=== PATIENT | female | born 1965 | race Two or more races ===

== ENCOUNTER 2020-09-14 05:51 | Inpatient (IN) | payer BC ==
[2020-09-14] VITALS (15 sets, daily range): BP systolic 101–127; BP diastolic 60–88
[~2020-09-14] VITALS: Ht 152.4 cm; Wt 52.6 kg
[2020-09-14] MEDS ORDERED: ATORVASTATIN CA10 MG ORAL (06:39)
[2020-09-14] MEDS ORDERED: PANTOPRAZOLE SO40 MG ORAL (06:40)
--- NOTE | 2020-09-14 06:59 | Anethesia Preoperative Eval ---
Anesthesia Pre-op PMH/ROS General Date of Evaluation: Sep 14, 2020 Time of Evaluation: 07:19 Anesthesiologist: Alexander ASA Score: ASA 3 Mallampati Score Class I : Soft palate, uvula, fauces, pillars visible Class II: Soft palate, uvula, fauces visible Class III: Soft palate, base of uvula visible Class IV: Only hard plate visible Mallampati Classification: Class I Surgeon: Franck Diagnosis: Vaginal Bleeding Surgical Procedure: Supracervical Hysterectomy Anesthesia History: none Family History: no anesthesia problems Allergies: Coded Allergies: No Known Allergies (Unverified , 09/14/20) Medications: see eMAR Patient NPO?: Yes Past Medical History Cardiovascular: Reports: HTN, other - HL Gastrointestinal/Genitourinary: Reports: GERD, other - Vag Bleeding Anesthesia Pre-op Phys. Exam Physician Exam Last Vital Signs Date Time Temp Pulse Resp B/P (MAP) Pulse Ox O2 Delivery O2 Flow Rate FiO2 09/14/20 06:34 Room Air 09/14/20 06:27 97.2 72 18 126/88 (101) 100 Constitutional: NAD Neurologic: CN 2-12 intact Cardiovascular: RRR Respiratory: CTA Airway Exam Mallampati Score: Class I MO: full ROM: full Teeth: missing Dentures: upper Anesthesia Pre-op A/P Labs Urine Test Test 09/14/20 06:10 Urine HCG, Qualitative Negative (NEGATIVE) Risk Assessment & Plan Assessment: ASA 3 Pre-Antibiotics Dru gram Ancef IV Given Within 1 Hr of Incision: Yes Time Given: 07:51 Jv Munoz MD Sep 14, 2020 06:59
[2020-09-14] MEDS ORDERED: Hydromorphone 0.5mg/0.5ml inj IVP PRN ×2 (07:00→07:30)
[2020-09-14] MEDS ORDERED: Meperidine 25mg/1ml Inj (FOR RIGORS ONLY) IV PRN (07:00)
[2020-09-14] MEDS ORDERED: HYDROcodone/Acetamin 7.5/325 tab ORAL PRN (07:00)
[2020-09-14] MEDS ORDERED: Atropine Sulfate 0.4mg/ml inj IVP PRN (07:00)
[2020-09-14] MEDS ORDERED: Labetalol 5mg/ml 20ml vial IV PRN (07:00)
[2020-09-14] MEDS ORDERED: oxyCODONE HCL/Acetaminophen 5/325mg ORAL PRN (07:00)
[2020-09-14] MEDS ORDERED: Metoclopramide 10mg/2ml Inj IVP PRN ×2 (07:00→07:30)
[2020-09-14] MEDS ORDERED: DiphenhydrAMINE 50mg/ml Inj IVP PRN ×2 (07:00→07:30)
[2020-09-14] MEDS ORDERED: Acetaminophen (Non formulary) 100 ML IV ONE (07:00)
[2020-09-14] MEDS ORDERED: ceFAZolin sod 2 GM in NS 55 ML IVPB ONE (07:00)
[2020-09-14] MEDS ORDERED: LR 1000ml 1,000 ML IVLG SCH (07:00)
[2020-09-14] MEDS ORDERED: LORazepam Inj 2mg/ml 1ml IV PRN (07:00)
[2020-09-14] MEDS ORDERED: Ketorolac 30mg Inj IV PRN ×2 (07:00)
[2020-09-14] MEDS ORDERED: Midazolam 2mg/2ml Inj IVP PRN (07:00)
[2020-09-14] MEDS ORDERED: fentaNYL 100 mcg/2 mL IV PRN (07:00)
[2020-09-14] MEDS ORDERED: HYDROcodone/Acetamin 5/325 tab ORAL PRN (07:00)
[2020-09-14] MEDS ORDERED: Duramorph PF 5mg/10ml amp ONE (07:02)
[2020-09-14] MEDS ORDERED: Rocuronium Bromide 50mg/5ml Inj IV ONE (07:03)
[2020-09-14] MEDS ORDERED: Lidocaine 1% Plain 30 ml INJ ONE (07:11)
[2020-09-14] MEDS ORDERED: Sodium Chloride 10ml vial INJ ONE ×2 (07:16→07:25)
[2020-09-14] MEDS ORDERED: Lidocaine 1% MPF 10mg/ml 5ml ONE ×2 (07:16→09:25)
[2020-09-14] MEDS ORDERED: Glycopyrrolate 0.2mg/ml 1ml Vial ONE ×2 (07:21→09:57)
[2020-09-14] MEDS ORDERED: Neostigmine 1mg/ml 10ml Inj ONE ×2 (07:21→12:00)
[2020-09-14] MEDS ORDERED: fentaNYL 100 mcg/2 mL IV ONE (07:23)
[2020-09-14] MEDS ORDERED: Ropivacaine 5mg/ml Vial 30ml INJ ONE (07:27)
--- NOTE | 2020-09-14 07:28 | Pre-Procedure Note/Attestation ---
Pre-Procedure Note/Attestation Complete Prior to Procedure Planned Procedure: not applicable Procedure Narrative: supracervical hysterectomy, bilateral salpingectomies possible oophorectomies Indications for Procedure Pre-Operative Diagnosis: intramural leiomyoma and pelvic/abdominal pain and pressure Attestation I attest that I discussed the nature of the procedure; its benefits; risks and complications; and alternatives (and the risks and benefits of such alternatives), prior to the procedure, with the patient (or the patient's legal sales utility representative). I attest that, if there was a reasonable possibility of needing a blood transfusion, the patient (or the patient's legal sales utility representative) was given the [place] Department [employer] standardized written summary, pursuant to the Joselo [place] Blood Safety Act ([place] Health and Safety Code # 1645, as amended). I attest that I re-evaluated the patient just prior to the surgery and that there has been no change in the patient's H&P, except as documented below: Roxi Juárez MD Sep 14, 2020 07:28
[2020-09-14] MEDS ORDERED: Acetaminophen 650 MG SUPP RECTAL PRN (07:30)
[2020-09-14] MEDS ORDERED: HYDROcodone/Acetamin 10/325 tab ORAL PRN (07:30)
[2020-09-14] MEDS ORDERED: ProvayBlue 5mg/ml 10ml amp INJ ONE (07:30)
[2020-09-14] MEDS ORDERED: Sennosides 8.6mg tab ORAL PRN (07:30)
[2020-09-14] MEDS ORDERED: HYDROmorphone 1mg/ml Carpuject IVP PRN (07:30)
[2020-09-14] MEDS ORDERED: Milk of Magnesia 30ml Ud ORAL PRN (07:30)
[2020-09-14] MEDS ORDERED: NS 55ml IV ONE (08:49)
--- NOTE | 2020-09-14 10:40 | Immediate Post-Op Evaluation ---
Immediate Post-Op Evalulation Immediate Post-Op Evalulation Procedure: Supracervical Hysterectomy Date of Evaluation: Sep 14, 2020 Time of Evaluation: 10:52 IV Fluids: 1200 LR Blood Products: 0 Estimated Blood Loss: 150 Urinary Output: 200 Blood Pressure Systolic: 122 Blood Pressure Diastolic: 76 Pulse Rate: 76 Respiratory Rate: 16 O2 Sat by Pulse Oximetry: 100 Temperature (Fahrenheit): 99.7 Pain Score (1-10): 2 Nausea: No Vomiting: No Complications 0 Patient Status: awake, reacts, patent, extubated, none Hydration Status: adequate Dru Gram Ancef IV Given Within 1 Hr of Incision: Yes Time Given: 07:51 Jv Munoz MD Sep 14, 2020 10:40
--- NOTE | 2020-09-14 10:53 | Brief Operative Note ---
Immediate Post Operative Note Operative Note Pre-op Diagnosis: intramural leiomyoma and pelvic/abdominal pain and pressure Post-op Diagnosis: same as pre-op Surgeon: yakelin Line Inspector: renuka Anesthesiologist: Perry Anesthesia: general Specimen: yes Complications: none Condition: stable Fluids: crystalloid Estimated Blood Loss: volume - 150cc Drains: none Implant(s) used?: No Roxi Juárez MD Sep 14, 2020 10:53
[2020-09-14] MEDS ORDERED: Sterile Water Irrig 1000ml IRRIG ONE (12:00)
[2020-09-14] MEDS ORDERED: NS Irrig 1000ml ONE (12:00)
[2020-09-14] MEDS ORDERED: LR 1000ml ONE (12:00)
[2020-09-14] MEDS: Ketorolac 30mg Inj IV SCH ×2 (13:13→19:36)
[2020-09-14] MEDS: D5 1/2NS w/KCl 20mEq 1,000 ML IV SCH ×2 (14:15→22:02)
[2020-09-14] MEDS ORDERED: ceFAZolin sod 1 GM in D5W 55 ML IV ONE (16:00)
--- NOTE | 2020-09-14 18:45 | Operative Note - Dictated ---
DATE OF OPERATION: 09/14/2020 PREOPERATIVE DIAGNOSES: Lower abdominal pain and leiomyoma. POSTOPERATIVE DIAGNOSES: Lower abdominal pain, leiomyoma, and endometriosis. PROCEDURE: Exploratory laparotomy, total abdominal hysterectomy, bilateral salpingectomy, and extensive lysis of adhesions between the bowel and uterus. Surgeon: Roxi Juárez M.D. Export Clerk: Natalia Castle M.D. EBL: 150cc Anesthesia: General/ endotracheal Anesthesiologist: Jayashree Amador PROCEDURE IN DETAIL: After ensuring informed consent, the patient was taken to the operating room where general anesthesia was induced. The patient was placed in dorsal lithotomy position. A low-transverse incision was made in the skin and carried down to the level of the fascia with the Bovie. The fascia was tented up and both bluntly and sharply dissected off of the underlying rectus muscles. Next, peritoneum was identified and entered bluntly. Peritoneal incision was extended superiorly and posteriorly. A medium Pravin retractor was placed and bowel was packed away with 3 laps. Pelvis was explored. There were extensive adhesions between uterus and the rectosigmoid as well as between ovaries, bowel, and lateral sidewalls. There were multiple fibroids in the uterus. Left tube and ovary appeared normal, although adherent, however right ovary contained an endometrioma and tube appeared edematous and adherent to rectosigmoid and back of the uterus Using both sharp and blunt dissection, sharp with Metzenbaums and blunt with a sponge stick and fingers, the rectosigmoid was resected from the posterior uterus and cervix. During the resection, a large endometrioma was encountered on the right side that was entered during disection of adhesions. First right round ligament was grasped, cut, and suture ligated and vesicouterine peritoneum was entered and dissected off of the underlying lower uterine segment. The left round ligament was grasped, transected, suture ligated, and bladder reflection was created from the left side. On the left side, a window was made in the broad ligament and using Mitch clamps, utero-ovarian was grasped, cut, and suture ligated x2. Attention was turned to the right side where adhesions were taken off between the right ovary and tube, posterior uterus, and the bowel until the ovaries and tubes were completely free on the right side. Window was created in the broad ligament. Mitch clamp was passed through the window and the utero-ovarian was transected and suture ligated x2. The left uterine was grasped with slightly curved Zeppelins, cut, and suture ligated. Unfortunately on the right side, the uterine was not visible, so myomectomy was performed on the right side, namely Pitressin was injected 20 units in 50 mL, 10 mL of that was used, and the fibroid was resected which afforded excellent visualization of the right uterine artery, which was grasped with curved Zeppelin, cut, and suture ligated. The uterus was amputated. Again, because of the extensive cul-de-sac adhesions and the short cervix, cervix was amputated as well for fear that the adhesions will reform and it will be impossible to resect. The cuff was closed with 0 Vicryl. Excellent hemostasis was assured. Bilateral tubes were amputated, namely they were grasped with Mitch clamps, amputated, and the pedicle was suture ligated x2 on both sides. Excellent hemostasis was assured. The pelvis was copiously irrigated with 2 L of normal saline. Laps were removed. Pravin was removed. Peritoneum was closed with 2-0 Vicryl. Muscle was closed with 2-0 Vicryl. Fascia was closed with 0 Vicryl. Subcutaneous was closed with 3-0 plain and subcuticular suture was used to close the skin with 3-0 Monocryl. Steri-Strips were placed. At the end of the procedure, all instrument and lap counts were correct x3. The patient was taken to the recovery area extubated and in stable condition. Roxi Juárez M.D. DR: Sabrina JOB#: [id number] CC: RICHARD
[2020-09-14] MEDS ORDERED: Tubing IV Secondary IV ONE (21:03)
[2020-09-15] VITALS: BP 107/65
[2020-09-15] MEDS: Ketorolac 30mg Inj IV SCH ×4 (01:19→19:51)
[2020-09-15 04:00] VITALS: BP 94/57
[2020-09-15 06:02] LABS: ANION GAP 5 mmol/L (5-15); BLOOD UREA NITROGEN 8 mg/dL (7-18); CALCIUM 7.7 MG/DL (8.5-10.1); CARBON DIOXIDE 28 MMOL/L (21-32); CHLORIDE 107 MMOL/L (98-107); CREATININE 0.8 MG/DL (0.55-1.30); POTASSIUM 3.9 MMOL/L (3.5-5.1); SODIUM 140 MMOL/L (136-145)
[2020-09-15] MEDS: D5 1/2NS w/KCl 20mEq 1,000 ML IV SCH (06:03)
[2020-09-15 06:08] LABS: BASOPHILS % (AUTO) 0.3 % (0.0-2.0); HEMATOCRIT 34.5 % (37.0-47.0); HEMOGLOBIN 11.3 G/DL (12.0-16.0); LYMPHOCYTES % (AUTO) 15.8 % (20.0-45.0); MEAN CORPUSCULAR VOLUME 101 FL (80-99); MONOCYTES % (AUTO) 8.3 % (1.0-10.0); NEUTROPHILS % (AUTO) 75.5 % (45.0-75.0); PLATELET COUNT 217 K/UL (150-450); RED BLOOD COUNT 3.42 M/UL (4.20-5.40); RED CELL DISTRIBUTION WIDTH 11.5 % (11.6-14.8); WHITE BLOOD COUNT 8.8 K/UL (4.8-10.8)
[2020-09-15 07:55] VITALS: BP 116/68
--- NOTE | 2020-09-15 08:38 | 48 Hour Post Anesthesia Eval ---
Post Anesthesia Evaluation Procedure: Supracervical Hysterectomy Date of Evaluation: Sep 15, 2020 Time of Evaluation: 08:37 Blood Pressure Systolic: 116 0: 68 Pulse Rate: 77 Respiratory Rate: 16 Temperature (Fahrenheit): 98.2 O2 Sat by Pulse Oximetry: 99 Airway: patent Nausea: No Vomiting: No Pain Intensity: 1 - Pt comfortable over night. Hydration Status: adequate Cardiopulmonary Status: Stable Mental Status/LOC: patient returned to baseline Follow-up Care/Observations: 0 Post-Anesthesia Complications: 0 Follow-up care needed: N/A Jv Munoz MD Sep 15, 2020 08:38
--- NOTE | 2020-09-15 09:37 | General Surgery Progress Note ---
General Surgery-Progress Note Subjective Symptoms: pain same, tolerating diet, voiding well, passing flatus Objective Last 24 Hour Vital Signs Date Time Temp Pulse Resp B/P (MAP) Pulse Ox O2 Delivery O2 Flow Rate FiO2 09/15/20 08:38 77 16 99 09/15/20 07:55 98.2 77 16 116/68 (84) 99 09/15/20 04:00 98.1 70 18 94/57 (69) 97 09/15/20 01:49 98.5 09/15/20 00:00 98.5 68 18 107/65 (79) 99 09/14/20 20:55 Room Air 09/14/20 20:00 66 18 104/60 (75) 99 09/14/20 16:00 67 16 104/60 (75) 97 09/14/20 14:55 70 16 105/62 (76) 97 09/14/20 13:55 71 16 104/62 (76) 96 09/14/20 12:55 70 16 101/62 (75) 100 09/14/20 12:25 70 16 114/72 (86) 100 09/14/20 11:55 98.5 69 14 106/66 (79) 100 09/14/20 11:45 97.5 65 18 125/73 100 Nasal Cannula 3 09/14/20 11:30 67 17 127/70 100 Nasal Cannula 3 09/14/20 11:15 62 15 120/72 100 Nasal Cannula 3 09/14/20 11:00 67 17 124/71 100 Nasal Cannula 3 09/14/20 10:50 63 16 126/66 100 Nasal Cannula 3 09/14/20 10:40 71 18 124/73 100 Nasal Cannula 3 09/14/20 10:40 76 16 100 09/14/20 10:35 99.7 77 16 122/76 100 Nasal Cannula 3 I&O Intake and Output 09/14/20 09/15/20 19:00 07:00 Intake Total 1280 ml 1365 ml Output Total 575 ml 1100 ml Balance 705 ml 265 ml Intake Oral 400 ml 240 ml IV Total 880 ml 1125 ml Output Urine Total 575 ml 1100 ml Dressing: dry Drains: none Cardiovascular: RSR Respiratory: clear Abdomen: soft, present bowel sounds, non-distended Extremities: no edema Laboratory Tests Test 09/15/20 04:50 White Blood Count 8.8 K/UL (4.8-10.8) Red Blood Count 3.42 M/UL (4.20-5.40) L Hemoglobin 11.3 G/DL (12.0-16.0) L Hematocrit 34.5 % (37.0-47.0) L Mean Corpuscular Volume 101 FL (80-99) H Mean Corpuscular Hemoglobin 33.0 PG (27.0-31.0) H Mean Corpuscular Hemoglobin Concent 32.7 G/DL (32.0-36.0) Red Cell Distribution Width 11.5 % (11.6-14.8) L Platelet Count 217 K/UL (150-450) Mean Platelet Volume 6.7 FL (6.5-10.1) Neutrophils (%) (Auto) 75.5 % (45.0-75.0) H Lymphocytes (%) (Auto) 15.8 % (20.0-45.0) L Monocytes (%) (Auto) 8.3 % (1.0-10.0) Eosinophils (%) (Auto) 0.0 % (0.0-3.0) Basophils (%) (Auto) 0.3 % (0.0-2.0) Sodium Level 140 MMOL/L (136-145) Potassium Level 3.9 MMOL/L (3.5-5.1) Chloride Level 107 MMOL/L (98-107) Carbon Dioxide Level 28 MMOL/L (21-32) Anion Gap 5 mmol/L (5-15) Blood Urea Nitrogen 8 mg/dL (7-18) Creatinine 0.8 MG/DL (0.55-1.30) Estimat Glomerular Filtration Rate > 60 mL/min (>60) Glucose Level 150 MG/DL (74-106) H Calcium Level 7.7 MG/DL (8.5-10.1) L Assessment Post-op Diagnosis s/p DESTINY- stable Plan Additional Comments ambulate/ regular diet plan to d/c in am Roxi Juárez MD Sep 15, 2020 09:37
[2020-09-15] MEDS: HYDROcodone/Acetamin 5/325 tab ORAL PRN (10:00)
[2020-09-15 11:54] VITALS: BP 109/64
[2020-09-15 16:00] VITALS: BP 102/61
[2020-09-15 19:54] VITALS: BP 119/71
[2020-09-16] VITALS: BP 122/70
[2020-09-16] MEDS: Ketorolac 30mg Inj IV SCH ×3 (01:25→13:42)
[2020-09-16 04:00] VITALS: BP 121/70
[2020-09-16 07:34] VITALS: BP 136/72
[2020-09-16] MEDS: HYDROcodone/Acetamin 5/325 tab ORAL PRN (08:54)
[2020-09-16 12:00] VITALS: BP 143/80
--- NOTE | 2020-09-16 12:03 | General Surgery Progress Note ---
General Surgery-Progress Note Subjective Symptoms: improved, tolerating diet, voiding well, passing flatus Objective Last 24 Hour Vital Signs Date Time Temp Pulse Resp B/P (MAP) Pulse Ox O2 Delivery O2 Flow Rate FiO2 09/16/20 08:58 Room Air 09/16/20 07:34 98.7 61 16 136/72 (93) 98 09/16/20 04:00 98.1 72 16 121/70 (87) 95 09/16/20 01:55 98.5 09/16/20 00:00 98.4 72 16 122/70 (87) 94 09/15/20 21:00 Room Air 09/15/20 20:21 98.5 09/15/20 19:54 98.5 69 16 119/71 (87) 95 09/15/20 16:00 98.3 72 16 102/61 (75) 95 I&O Intake and Output 09/15/20 09/16/20 19:00 07:00 Intake Total 750 ml 480 ml Balance 750 ml 480 ml Intake Oral 500 ml 480 ml IV Total 250 ml # Voids 3 4 Dressing: dry Wound: clean, dry, intact Drains: none Cardiovascular: RSR Respiratory: clear Abdomen: soft, present bowel sounds, non-distended Extremities: no edema, no tenderness, no cyanosis Assessment Post-op Diagnosis s/p DESTINY- stable Plan Additional Comments d/c home on tramadol 50 JoosRoxi MD Sep 16, 2020 12:02
--- NOTE | 2020-09-16 12:04 | Discharge Instructions ---
Discharge Instructions Discharge Instructions Diet: regular Resume Normal Activity?: No Activity: up ad radha, light activity, okay to shower For Surgical Patients Dressing Care: keep dry and clean May shower: Yes Contact your physician for: bleeding, pain, tenderness, redness, swelling For Congestive Heart Failure Reminder Report to your physician any weight gain of 5 pounds or more in one week. Roxi Juárez MD Sep 16, 2020 12:04
[2020-09-16] MEDS ORDERED: traMADol 50mg tab ORAL ONE (12:15)
[2020-09-16] MEDS ORDERED: TRAMADOL HCL50 MG ORAL (13:13)
[2020-09-16] MEDS ORDERED: NORCO 5-325 TA1 EAC1 ORAL (13:14)
--- NOTE | 2020-09-18 12:27 | Discharge Summary ---
Discharge Summary Hospital Course Date of Admission Sep 14, 2020 at 05:51 Date of Discharge Sep 16, 2020 at 14:41 Admitting Diagnosis Lower abdominal pain Leiomyoma Reason for Hospitalization: elective surgery BETHANY Landrum is a 55 year old female who was admitted on Sep 14, 2020 at 05:51 for Uterine Fibroids,Irregular Heavy Periods, Procedures s/p 09/14/[address] Juárez Exploratory laparotomy, total abdominal hysterectomy, bilateral salpingectomy, and extensive lysis of adhesions between the bowel and uterus Hospital Course status post surgery course of recovery uneventful initially IV fluids s/p perioperative antibiotic incision clean, dry and intact pain management was addressed pain was controlled remained hemodynamically stable ambulated DVT prophylaxis provided use of incentive spirometry was encouraged while in the bed when bowel function returned, patient slowly started on diet and was advanced as tolerated IV fluids discontinued after patient tolerated diet GI prophylaxis provided antiemetics were on board as needed voided freely bowel regimen instituted patient was stable for discharge discharge instructions provided follow up with surgeon in the office as advised FINAL DIAGNOSES Lower abdominal pain Leiomyoma Endometriosis. s/p Exploratory laparotomy, total abdominal hysterectomy, bilateral salpingectomy, and extensive lysis of adhesions between the bowel and uterus Discharge Medications Continued Medications: Atorvastatin Calcium* (Lipitor*) 10 Mg Tablet 10 MG ORAL BEDTIME for Dyslipidemia, TAB Hydrocodone Bit/Acetaminophen 5-325* (Iron Belt 5-325 Tablet*) 1 Each Tablet 1 TAB ORAL Q6H PRN for FOR PAIN, #18 TAB 0 Refills Pantoprazole* (Pantoprazole*) 40 Mg Tablet.dr 40 MG ORAL DAILY for Gerd, TAB Tramadol Hcl* (Ultram*) 50 Mg Tablet 50 MG ORAL Q6H PRN for For Pain, #30 TAB 0 Refills Discharge Condition Upon Discharge: stable Discharge Vital Signs Last Vital Signs Date Time Temp Pulse Resp B/P (MAP) Pulse Ox O2 Delivery O2 Flow Rate FiO2 09/16/20 12:00 98.6 64 16 143/80 (101) 100 09/16/20 08:58 Room Air 09/14/20 11:45 3 Discharge Disposition Patient was discharged home Discharge Instructions Discharge Instructions Activity: up ad radha, light activity, okay to shower Special Instructions I have been assigned to complete a D/C Summary on this account. I was not involved in the patient management For Surgical Patients Dressing Care: keep dry and clean May shower: Yes Contact your physician for: bleeding, pain, tenderness, redness, swelling Francine Escalante NP Sep 18, 2020 12:27
== END 2020-09-16 14:41 | disposition home or self-care (01) | DRG 743 ==
LOC: SDSOVERFLO 05:51 → 3E 11:54
PROC: 0UT70ZZ Resection of Bilateral Fallopian Tubes, Open Approach (ICD-10-PCS; principal; 2020-09-14 07:30)
PROC: 0UT90ZZ Resection of Uterus, Open Approach (ICD-10-PCS; principal; 2020-09-14 07:30)
PROC: 0DNW0ZZ Release Peritoneum, Open Approach (ICD-10-PCS; principal; 2020-09-14 07:30)
DX: D25.9 Leiomyoma of uterus, unspecified (principal); N80.9 Endometriosis, unspecified; G89.29 Other chronic pain; R10.2 Pelvic and perineal pain; K66.0 Peritoneal adhesions (postprocedural) (postinfection)
CPT/HCPCS: 36415; 80048; 81025; 85025; 86850; 86900; 86901; 87081; 94003; 94150; J2180; J2405; J2710; U0002